=== PATIENT | female | born 1945 ===

== ENCOUNTER 2017-05-08 06:53 | Inpatient (IN) | payer OTHER, MEDICARE ==
[2017-04-28 11:06] VITALS: BMI 32.5
[2017-05-08] MEDS ORDERED: ceFAZolin IV 2 gm in Dextrose 2 GM/50 ML BAG IVPB ONE (07:35)
[2017-05-08] MEDS ORDERED: Bupivacaine-Epi 0.25%-1:200,000 PF Inj ONE (07:35)
[2017-05-08] MEDS ORDERED: Propofol 10 mg/ml Inj (20 ML) ONE (07:57)
[2017-05-08] MEDS ORDERED: Midazolam 2 MG/2 ML VIAL ONE (07:57)
[2017-05-08] MEDS ORDERED: Rocuronium 10 mg/ml (5 ml) ONE (08:04)
[2017-05-08] MEDS ORDERED: Lactated Ringer's 1,000 ML IV ONE ×3 (08:05→09:51)
[2017-05-08] MEDS ORDERED: Lidocaine Hydrochloride 5 ML INJ ONE (09:35)
[2017-05-08] MEDS ORDERED: Neostigmine Methylsulfate 3mg/3ml Syringe IV ONE (09:37)
[2017-05-08] MEDS ORDERED: HYDROmorphone 0.5 mg/0.5 ml ISec IVP PRN (10:04)
[2017-05-08] MEDS ORDERED: Morphine 4 MG/ML VIAL IVP PRN (10:11)
[2017-05-08] MEDS ORDERED: Trimethobenzamide 200 mg/2 mL Inj IM PRN (10:11)
[2017-05-08] MEDS ORDERED: Oxycodone/Acetaminophen 5/325 mg Tab PO PRN (10:11)
[2017-05-08] MEDS ORDERED: Sodium Chloride 0.9% 1,000 ML IV SCH (10:15)
--- NOTE | 2017-05-08 10:23 | PCM.SURG1 ---
<Maritza Byrne - Last Filed: 05/08/17 10:20> Surgeon's Initial Post Op Note - Surgeon's Notes Surgeon: Maikol Nevarez MD Merchandise Distributor: Kathryn Moreno pA-C Type of Anesthesia: General Endo Anesthesia Administered By: Dr. Gastelum Pre-Operative Diagnosis: Fibroid uterus, Urinary incontinence, Prolapse uterus, cystocele Operative Findings: as above Post-Operative Diagnosis: same Operation Performed: Robotic assisted total hysterectomy, uterosacral ligament suspension, cystoscopy Specimen/Specimens Removed: uterus Estimated Blood Loss: EBL {In ML}: 20 Blood Products Given: N/A Drains Used: No Drains Post-Op Condition: Fair Date of Surgery/Procedure: 05/08/17 Time of Surgery/Procedure: 10:22 ([place] [facility] REPA[employer] patient report reviewed, no CDS. Patient counseled on the risks of addiction, physical or psychological dependence, and overdose associated with opioid drugs and the danger of taking opioid drugs with alcohol and other central nervous system depressants, and cautioned patient on storage and disposal.) <Tina Nevarez - Last Filed: 05/08/17 20:20> Surgeon's Initial Post Op Note - Surgeon's Notes Specimen/Specimens Removed: uterus, cervix, fallopian tubes, ovaries.
[2017-05-08] MEDS: ceFAZolin IV 1 gm in Dextrose 1 GM/50 ML BAG IVPB SCH (18:33)
--- NOTE | 2017-05-08 20:23 | PCM.OP ---
Operative Report - Operative Report Date of Surgery/Procedure: 05/08/17 Time of Surgery/Procedure: 09:30 Surgeon: Tina Nevarez MD Poker Dealer: Dax Meza, Rochelle MEAD Anesthesia/Sedation: Gen. anesthesia with ET tube Pre-Operative Diagnosis: Symptomatic fibroid uterus. Prolapsed uterus. Cystocele. Mixed urinary incontinence Post-Operative Diagnosis: Symptomatic fibroid uterus. Prolapsed uterus. Cystocele. Mixed urinary incontinence Indication for Surgery: worsening symptomatic fibroid uterus, worsenin worsening pelvic organ prolapse. Operative Findings: Symptomatic fibroid uterus, multiple intramural myomas, worsening urinary incontinence. Procedure/Operation Description: 1. Total robotic hysterectomy bilateral salpingo-oophorectomy. 2. Uterosacral ligament suspension colpopexy. 3. Diagnostic cystoscopy. . detailed operative report. This is a 71 years old female with symptomatic uterine prolapse, enlarged fibroid uterus, cystocele , rectocele and urinary incontinence. The patient completed an extensive preoperative workup, which included an ultrasound, as well as a pap smear, chemistry and hematology studies. The patient reported these symptoms and problems as debilitating, and adversely affecting her quality of life. Following a period of failed conservative management, and patient decision was made to proceed with a more invasive approach to address the above noted problems. A decision was finally made to proceed with a total robotic assisted hysterectomy, bilateral salpingoophorectomy, and vaginal vault suspension. A detailed description of this robotic procedure was given to the patient, all risks and benefits of the surgical modality was reviewed, printed material was also given to the patient regarding robotic surgery. The patient fully understood all the risks and benefits and elected to proceed with this proposed procedure. After proper consent was obtained from the patient was taken to the operating room, proper patient identification was completed. She was placed in dorsal lithotomy position; general anesthesia was induced without difficulty. Her legs were placed in adjustable Eleazar stirrups. Careful attention was placed not to over-flex or over-rotate the lower extremities at the hip or the knee joints. She was prepped and draped appropriately for robotic assisted hysterectomy. Sepulveda catheter was inserted under sterile conditions. A weighted speculum was placed in the vagina, anterior lip of cervix was grasped with a tenaculum, and a [employer]-care uterine manipulator was inserted through the cervix and secured. The weighted speculum and tenaculum were removed from the patient's vagina and attention was turned to the patient's abdomen. Local anesthetic solutions of 0.25% Marcaine with epinephrine were utilized to infiltrate the skin prior to all abdominal skin incisions. A total of 15 mL of 0.25% Marcaine was utilized throughout the procedure. While tenting the abdominal wall, a Veres needle was inserted through the umbilicus and a pneumoperitoneum was obtained. Approximately 1 cm below the umbilical fold, in the midline, a 1 cm incision was made with a scalpel and a trocar and sleeve were introduced. A robotic camera was inserted and an initial survey of the patient's abdomen revealed an enlarged bulky uterus, boggy in appearance. Both ovaries appeared normal with normal appearing fallopian tubes. The patient was placed in Trendelenburg position ready for a da Kosta robotic system to be docked. 3 robotic ports were utilized for this procedure. The first robotic port was placed on the patient's left side approximately 5 cm superior to the superior crest on the patient's left side, the second robotic port was placed 8 cm right lateral to the camera port and the third robotic port was placed approx. 5 centimeters superior to the right superior iliac crest. All ports were aligned along the same horizontal line on the abdomen in an arch like fashion. An hearing and speech assistant port was placed 8 cm left lateral to the camera port in the midline. For the hearing and speech assistant port we utilized the Versa step trocar system. All trocars were inserted under direct visualization. The placement of the trocars was all accomplished under careful and meticulous placement under direct visualization. Following the placement of all trocars, the da Kosta robotic system was docked in a parallel method without difficulty. The following instruments were utilized for this procedure: the bipolar cautery device, a monopolar mary jane and finally a ProGrasp. Prior to the start of the hysterectomy, both ureters and their courses were visualized, peristalsis bilaterally. On the patient's right side, the IP and the round ligaments were identified cauterized and transected, the broad ligament was divided all the way down to the utero cervical junction bladder flap was then created by transecting the visceroperitoneum over the bladder reflection. In a similar fashion, the left round ligament, IP ligament and broad ligament were cauterized sealed and transected, taken down to the level of the cervical uterine junction. Uterine vessels on both sides were sealed and transected. The Uterosacral ligaments were sealed and transected. The monopolar mary jane and PK were utilized to complete the colpotomy incision around the care vaginal ring. Excellent hemostasis was noted. The uterus, cervix, ovaries and fallopian tubes were delivered transvaginal through the colpotomy incision and sent to pathology for permanent analysis. The colpotomy incision was closed with 2-0 v LOC in a continuous fashion with excellent hemostasis. The vaginal vault suspension was achieved by suspending the vaginal cuff to the base of the uterosacral ligaments bilaterally. For uterosacral ligament suspension portion of the procedure, the ureters were once again identified to avoid possible compromise or kinking while suspending the vaginal vault. A 2-0 permanent suture material (Kenesaw-Rogers) was utilized to suspend the uterosacral ligaments from the base to the vaginal vault cuff incision including both anterior and posterior aspect of the colpotomy incision. Utilizing a 3-0 Monocryl suture, the peritoneum over the colpotomy incision and uterosacral ligaments was re- approximated in a continuous fashion. The abdomen was throughout irrigated and cleared of all clots and debris. FloSeal as well as Interceed was applied to the incision sites. Excellent hemostasis was again noted. All robotic and laparoscopic instruments removed under direct visualization. The robotic arms were undocked, and a da Kosta robotic system was wheeled away from the patient' s bedside. Both hearing and speech assistant and camera ports were closed at the fascial layer utilizing a 2-0 Vicryl suture material in interrupted fashion. Pneumoperitoneum was reduced and all skin incisions were closed utilizing 4-0 Monocryl in a subcutaneous fashion. Dermabond was applied to all incisions. At the conclusion of this hysterectomy, a diagnostic cystoscopy was completed. The Sepulveda catheter was removed; the bladder was distended with approximately 350 cc of normal saline. A 30 cystoscope was introduced and a survey of the bladder anatomy was completed. The base, and the dome of the bladder appeared normal, both ureteral orifices appeared normal and were efluxing urine freely. The urethra appeared normal. A Sepulveda catheter was reinserted. Vaginal packing was inserted to be removed the next morning. Patient emerged from general anesthesia without difficulty, and was taken to recovery room in stable condition. Prior to incision the patient received antibiotics, prior to closure sponge lap and needle counts were correct x2. Estimated Blood Loss: 20 cc Blood Replaced: none Sponge/Instrument Count: sponge lap and needle counts were correct x2 Drains: none Complications: none Specimen: uterus cervix tubes and ovaries Discharge & Condition: patient was taken to recovery room in stable conditio will discharge home postoperative day #1 if criteria are met.
[2017-05-09] MEDS: ceFAZolin IV 1 gm in Dextrose 1 GM/50 ML BAG IVPB SCH (02:08)
[2017-05-09 07:38] LABS: HEMATOCRIT 36.3 % (34.0-47.0); MEAN CELL VOLUME 88.8 fL (81.0-99.0); MEAN CORPUSCULAR HEMOGLOBIN 29.8 pg (27.0-31.0); MEAN CORPUSCULAR HGB CONC 33.6 g/dL (33.0-37.0); MEAN PLATELET VOLUME 9.6 fL (7.2-11.7); WHITE BLOOD COUNT 9.2 K/uL (4.8-10.8)
[2017-05-09 07:45] LABS: CHLORIDE 104 mmol/L (98-107); POTASSIUM 3.3 mmol/L (3.6-5.2); SODIUM 137 mmol/L (132-148)
[2017-05-09 07:48] LABS: GFR AFRICAN-AMERICAN > 60
[2017-05-09 07:49] LABS: BLOOD UREA NITROGEN 10 mg/dL (7-17); CALCIUM 8.2 mg/dl (8.6-10.4); CARBON DIOXIDE 25 mmol/L (22-30); GLUCOSE,RANDOM 110 mg/dL (65-105)
[2017-05-09 08:40] VITALS: PULSE 77; RESP 18
[2017-05-09 16:18] VITALS: BP 120/78; O2SAT 99
[2017-05-09 16:39] VITALS: TEMP 98
--- NOTE | 2017-05-09 18:21 | CP.PCM.PN ---
Subjective - Date & Time of Evaluation Date of Evaluation: 05/09/17 Time of Evaluation: 18:30 - Subjective Subjective: pt was seen at bed side.feels ok, pain under control,no n/v, tolerating deit, voiding.no com abd soft,non ten little reness at the incision Objective - Vital Signs/Intake and Output Vital Signs (last 24 hours): Temp Pulse Resp BP Pulse Ox 98 F 77 18 120/78 99 05/09/17 16:00 05/09/17 16:00 05/09/17 16:00 05/09/17 16:00 05/09/17 16:00 Intake and Output: 05/09/17 05/09/17 06:59 18:59 Intake Total 1500 Output Total 700 Balance 800 - Medications Medications: Current Medications Sodium Chloride (Sodium Chloride 0.9%) 1,000 mls @ 80 mls/hr IV .[id number] Last Admin: 05/08/17 12:30 Dose: 0 mls Ibuprofen (Motrin Tab) 600 mg PO Q6 PRN PRN Reason: pain Last Admin: 05/08/17 17:59 Dose: 600 mg Morphine Sulfate (Morphine) 4 mg IVP Q4H PRN PRN Reason: Pain, moderate (4-7) Oxycodone/Acetaminophen (Percocet 5/325 Mg Tab) 1 tab PO Q4 PRN PRN Reason: Pain, Mild (1-3) Stop: 05/11/17 10:12 Potassium Chloride (K-Dur 20 Meq Er Tab) 40 meq PO ONCE ONE Stop: 05/10/17 18:31 Trimethobenzamide HCl (Tigan) 200 mg IM Q6 PRN PRN Reason: Nausea/Vomiting - Labs Labs: 05/09/17 07:18 05/09/17 07:18 Assessment and Plan - Assessment and Plan (Free Text) Assessment: 71 yr s/p robotic hystrectomy Plan: plan dc home no sex percocet, prn if any fever call pmd f/u in 1-2week
[2017-05-09] MEDS ORDERED: Potassium Chloride 20 mEq ER Tab PO ONE (18:45)
== END 2017-05-09 18:40 | disposition home or self-care (01) | DRG 743 ==
LOC: C.SDS 06:53 → C.9S 10:11 → C.4M 10:41
PROVIDERS: ADMIT Obstetrics & Gynecology; ATTEND Obstetrics & Gynecology
PROC: 0UTC7ZZ Resection of Cervix, Via Natural or Artificial Opening (ICD-10-PCS; 2017-05-08)
PROC: 0UT2FZZ Resection of Bilateral Ovaries, Via Natural or Artificial Opening With Percutaneous Endoscopic Assistance (ICD-10-PCS; 2017-05-08)
PROC: 0UT7FZZ Resection of Bilateral Fallopian Tubes, Via Natural or Artificial Opening With Percutaneous Endoscopic Assistance (ICD-10-PCS; 2017-05-08)
PROC: 0US94ZZ Reposition Uterus, Percutaneous Endoscopic Approach (ICD-10-PCS; 2017-05-08)
PROC: 0USG4ZZ Reposition Vagina, Percutaneous Endoscopic Approach (ICD-10-PCS; 2017-05-08)
PROC: 8E0W4CZ Robotic Assisted Procedure of Trunk Region, Percutaneous Endoscopic Approach (ICD-10-PCS; 2017-05-08)
PROC: 0TJB8ZZ Inspection of Bladder, Via Natural or Artificial Opening Endoscopic (ICD-10-PCS; 2017-05-08)
PROC: 0UT9FZZ Resection of Uterus, Via Natural or Artificial Opening With Percutaneous Endoscopic Assistance (ICD-10-PCS; principal; 2017-05-08 07:45)
DX: D25.1 Intramural leiomyoma of uterus (principal); N81.4 Uterovaginal prolapse, unspecified; N39.46 Mixed incontinence